=== PATIENT | female | born 1995 | race American Indian/Alaskan Native ===

== ENCOUNTER 2017-07-04 23:58 | Emergency (ER) | payer MEDICAID ==
[2017-07-05 01:59] VITALS: BP 109/72
== END 2017-07-05 07:05 | disposition left against medical advice (07) ==
LOC: ED 23:58
DX: R21 Rash and other nonspecific skin eruption (principal); Z53.21 Procedure and treatment not carried out due to patient leaving prior to being seen by health care provider